=== PATIENT | female | born 1965 | race Caucasian/White ===

== ENCOUNTER 2019-03-18 05:04 | Inpatient (IN) ==
--- NOTE | 2019-03-18 06:06 | PROVIDER DOCUMENTATION ---
HPI-General Adult - General Chief Complaint: Stroke-Like Symptoms Stated Complaint: weakness/ stroke like symptoms Time Seen by Provider: 03/18/19 05:06 Source: patient, family Allergies/Adverse Reactions: Patient Allergies Allergy/AdvReac Type Severity Reaction Status Date / Time Penicillins Allergy Intermediate RASH Verified 11/07/18 16:59 Home Medications: Home Medication List Medication Instructions Recorded Confirmed Last Taken Type Hydrocodone/Acetaminophen [[place] 1 each PO PRN PRN 08/25/17 08/25/17 08/25/17 13:00 History 10-325 Tablet] 0.5 TAB Hydrocodone/Acetaminophen [[place] 1 each PO Q4-6H PRN PRN #12 tablet 08/25/17 Unknown Rx 5-325 Tablet] Ibuprofen [Motrin] 800 mg PO Q8H PRN PRN #30 tablet 08/25/17 Unknown Rx Metformin [Glucophage] 500 mg PO BID CC #180 tablet 08/25/17 Unknown Rx Cefdinir 300 mg PO BID 7 Days #13 cap 11/07/18 Unknown Rx Sulfamethoxazole/Trimethoprim 1 ea PO BID 7 Days #13 tab 11/07/18 Unknown Rx [Bactrim Ds Tablet] Oxycodone HCl/Acetaminophen 1 - 2 ea PO Q6-8H PRN PRN #15 tab 02/25/19 Unknown Rx [Percocet 5-325 mg Tablet] - History of Present Illness -Gen Adult Nature of Presenting Problems: Pt presents with stroke like symptoms, last normal 7p last night, developed left sided facial droop, left arm and leg weakness, slurred speech, brother encouraged pt to come to the hospital but pt refused at the time, pmh of several TIAs, pt denies f/c, farias, cp, sob, cough, ap, n/v/d. Pt is lying in bed in no acute distress. Location of Pain/Injury: reports: upper extremity (left), lower extremity (left) Pain Radiation: reports: no radiation Quality of Pain: reports: none Severity: reports: moderate Onset/Duration: reports: other (11 hours) Timing: reports: still present, improving Context/Activities at Onset: reports: none Modifying Factors: improves with: nothing Associated Symptoms: reports: denies symptoms Similar Symptoms Previously?: No Recently seen or treated by another doctor?: No Review of Systems - Adult - REVIEW OF SYSTEMS - ADULT Constitutional: reports: no symptoms reported Eyes: reports: no symptoms reported Ears, Nose, Mouth & Throat: reports: no symptoms reported Cardiovascular: reports: no symptoms reported Respiratory: reports: no symptoms reported Gastrointestinal: reports: no symptoms reported Genitourinary: reports: no symptoms reported Musculoskeletal: reports: no symptoms reported Integumentary: reports: no symptoms reported Neurological: reports: see HPI Psychiatric: reports: no symptoms reported Endocrine: reports: no symptoms reported Hematologic/Lymphatic: reports: no symptoms reported Allergic/Immunologic: reports: no symptoms reported All Other Systems: Reviewed and Negative Past History - Adult - PAST MEDICAL HISTORY-ADULT Review of Records: reports: Old Records Reviewed, Nursing Assessment Review, Medications Reviewed, Social history reviewed & non-contributory. Major Childhood Illnesses: reports: denies history Cardiovascular: reports: HTN, hyperlipidemia Respiratory: reports: denies history Gastrointestinal: reports: denies history Obstetrical/Gynecological: reports: denies history Genitourinary: reports: kidney disease Musculoskeletal: reports: chronic pain, neck/back injury Neurological: reports: TIA Psychiatric: reports: depression Endocrine/Immune: reports: Diabetes - PRIOR SURGERIES/PROCEDURES Surgical/Procedure History: reports: appendectomy, - PRIOR HOSPITALIZATIONS Prior Hospitalizations: reports: for similar symptoms - IMMUNIZATION STATUS Childhood Immunizations: See Nurse Assessment Flu Vaccine: See Nurse Assessment - FAMILY HISTORY Family History: reviewed, not pertinent Physical Exam-General - PHYSICAL EXAM-ADULT Initial Vital Signs Reviewed: Yes - CONSTITUTIONAL General Appearance: appears well - EYES Eyes: PERRL/EOMI - HEAD, EARS, NOSE, MOUTH & THROAT HENMT: normal ENT inspection - NECK Neck: normal inspection - RESPIRATORY Respiratory: no respiratory distress, no accessory muscle use - CARDIOVASCULAR Cardiovascular: regular rate, rhythm - GASTROINTESTINAL (ABDOMEN) Abdominal Exam: non tender, soft - LYMPHATIC Lymphatic: no adenopathy - MUSCULOSKELETAL Back Exam: normal inspection Extremity: normal inspection - SKIN Integumentary: normal color - NEUROLOGIC Neurologic: facial droop, motor weakness - PSYCHIATRIC Psych/Mental Status: normal mood/affect Progress - PLAN OF CARE/RESULTS Progress/Plan/Lab Results: Vital Signs - 8 hr 03/18/19 05:28 Temperature 98.2 F Pulse Rate 73 Respiratory Rate 17 Blood Pressure 132/102 O2 Sat by Pulse Oximetry 100 Orders Category Date Time Status Cardiac Monitoring DIRECTED Care 03/18/19 05:06 Active Finger Stick Blood Sugar (ED) DIRECTED Care 03/18/19 05:06 Active Saline Loc NOW Care 03/18/19 05:06 Active CHEST-PORTABLE [RAD] Stat Exams 03/18/19 05:[address] HEAD W/O CONTRAST [CT] Stat Exams 03/18/19 05:07 Taken CBC WITH ELECTRONIC DIFF [HEME] Stat Lab 03/18/19 05:57 Ordered COMPREHENSIVE METABOLIC PANEL [CHEM] Stat Lab 03/18/19 05:57 Ordered PROTIME WITH INR [COAG] Stat Lab 03/18/19 05:57 Ordered PTT [COAG] Stat Lab 03/18/19 05:57 Ordered TROPONIN T Stat Lab 03/18/19 05:57 Ordered URINALYSIS W/POSS RFLX CULT [URINALYSIS] Stat Lab 03/18/19 05:06 Uncollected EKG [EKG] Stat Ther 03/18/19 05:06 Ordered
[2019-03-18 06:23] LABS: BASO# 0.03 X1000 (0.0-0.2); BASO% 0.3 % (0.0-0.8); EOS# 0.09 X1000 (0.0-0.7); EOS% 0.9 % (0.0-10.0); HEMATOCRIT 43.3 % (37.0-47.0); HEMOGLOBIN 14.6 g/dL (12.0-16.0); LYMPH# 1.79 X1000 (1.2-3.4); LYMPH% 18.4 % (20.5-51.1); MCH 29.1 PG (27-31); MCHC 33.7 g/dL (33-37); MCV 86.4 FL (81-99); MONO# 0.67 X1000 (0.11-0.59); MONO% 6.9 % (1.7-9.3); MPV 12.9 FL (7.4-10.4); NEUT# 7.16 X1000 (1.4-6.5); NEUT% 73.5 % (42.2-75.2); PLT 187 X1000 (130-400); RBC 5.01 XMIL (4.2-5.4); WBC 9.74 X1000 (4.8-10.8)
--- NOTE | 2019-03-18 06:26 | Diag Imaging Result Doc PS360 ---
CT HEAD W/O CONTRAST - 03/18/2019 INDICATION: Stroke like symptoms. COMPARISON: None FINDINGS: The ventricles and sulci are normal in size and contour. No intracranial mass or hemorrhage. The skull is intact. The sinuses mastoids and middle ears are clear. IMPRESSION: Negative exam. This exam was performed using automated exposure control, adjustment of mA or kV according to patient size, and/or use of iterative reconstruction technique Electronically signed by Ernesto Key 03/18/2019 6:24 AM
[2019-03-18 07:00] LABS: INR 0.96; PROTIME 13.5 Seconds (11.0-16.0)
[2019-03-18 07:01] LABS: PTT 25.1 Seconds (22.3-41.8)
[2019-03-18 07:01] LABS: URINE SOURCE CATH
--- NOTE | 2019-03-18 07:01 | Diag Imaging Result Doc PS360 ---
EXAM: CHEST-PORTABLE 03/18/2019 HISTORY: stroke like symptoms TECHNIQUE: AP portable at 0540 COMMENT: There is mild interstitial pulmonary edema. There are granulomata bilaterally. IMPRESSION: Mild pulmonary edema. Electronically signed by Darwin Avina 03/18/2019 6:59 AM
[2019-03-18 07:04] LABS: BILIRUBIN URINE NEGATIVE (NEGATIVE); BLOOD URINE NEGATIVE (NEGATIVE); COLOR YELLOW; GLUCOSE URINE 500 mg/dL (NEGATIVE); KETONE URINE NEGATIVE (NEGATIVE); LEUKOCYTES URINE NEGATIVE (NEGATIVE); NITRITE URINE NEGATIVE (NEGATIVE); PH URINE 6.5; PROTEIN URINE NEGATIVE (NEGATIVE); TURBIDITY URINE CLEAR (CLEAR); UROBILINOGEN URINE NORMAL (NORMAL)
[2019-03-18 07:05] LABS: UR EPITHELIAL CELLS <10 /HPF (<10); URINE BACTERIA NEGATIVE /HPF; URINE RBC <10 /HPF (<10); URINE WBC <10 /HPF (<10)
[2019-03-18 07:18] LABS: AGAP 15; ALB/GLOB RATIO 1.4; ALBUMIN 3.8 g/dL (3.5-5.0); ALKALINE PHOSPHATASE 90 U/L (32-104); BUN 15 mg/dL (8-22); CALCIUM 9.7 mg/dL (8.8-10.2); CHLORIDE 104 mmol/L (98-107); COSMO 290; CREATININE 0.5 mg/dL (0.5-0.9); GLUCOSE 274 mg/dL (70-104); GOT 13 U/L (10-30); GPT 11 U/L (10-36); POTASSIUM 4.3 mmol/L (3.5-5.1); SODIUM 140 mmol/L (136-145); TCO2 21 mmol/L (25-35); TOTAL BILIRUBIN 0.54 mg/dL (0.20-1.00); TOTAL PROTEIN 6.5 g/dL (6.3-8.3)
--- NOTE | 2019-03-18 08:15 | EKG Report ---
Test Performed on : 03/18/2019 05:38:33 AM Test Reason : Stroke like symptoms Blood Pressure : / mmHG Vent. Rate : 072 BPM Atrial Rate : 072 BPM P-R Int : 146 ms QRS Dur : 082 ms QT Int : 412 ms P-R-T Axes : 033 048 054 degrees QTc Int : 451 ms Normal sinus rhythm. Normal ECG When compared with ECG of 27-DEC-2014 09:25, No significant change was found Unconfirmed Result
[2019-03-18] MEDS: ASPIRIN PO SCH (12:41)
--- NOTE | 2019-03-18 16:59 | ECHO REPORT ---
ORDER DATE: 03/18/2019 INTERPRETING PHYSICIAN: Adryan Jaramillo MD ECHOCARDIOGRAPHIC MEASUREMENTS: 1. Interventricular septum 0.8 cm. 2. Left ventricular posterior wall 0.8 cm. 3. Diastolic diameter 4.9 cm. 4. Left atrium 3.2 cm. 5. Aorta 3.2 cm. SUMMARY OF THE 2-DIMENSIONAL IMAGIN. Technically suboptimal study. Poor acoustic window. 2. The aortic valve leaflets are trileaflet. 3. Pulmonic valve not well visualized. 4. Mitral valve was normal. 5. Tricuspid valve was normal. 6. There is trace mitral regurgitation. 7. Mild tricuspid regurgitation. 8. Peak velocity across the tricuspid valve less than 2 m/sec. 9. Peak velocity across the aortic valve less than 2 m/sec. 10. By Doppler studies, there is no aortic stenosis or regurgitation. 11. Saline contrast study was negative for patent foramen ovale. 12. Optison was used to assess left ventricular systolic function. 13. Normal left ventricular cavity size. 14. Estimated ejection fraction of 65% 15. There is no pericardial effusion or obvious intracardiac mass or thrombus seen. cc: MD Bernardo Camargo MD
[2019-03-18] MEDS: GLUCOPHAGE PO SCH (19:00)
[2019-03-18] MEDS: ULTRACET 37.5MG/325MG PO PRN (19:00)
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
[2019-03-18] MEDS: LIPITOR PO SCH (22:15)
[2019-03-18] MEDS: LOVENOX SUBQ SCH (22:16)
[2019-03-18] MEDS: HUMULIN N SUBQ SCH (22:28)
[2019-03-18] MEDS: PRINIVIL PO SCH (22:30)
[2019-03-19] MEDS: ULTRACET 37.5MG/325MG PO PRN ×4 (00:53→20:11)
[2019-03-19] MEDS: HUMULIN N SUBQ SCH ×2 (06:34→17:44)
[2019-03-19 07:48] LABS: HEMOGLOBIN A1C 9.2 % (4.8-6.0)
[2019-03-19] MEDS: GLUCOPHAGE PO SCH ×2 (08:46→17:44)
[2019-03-19] MEDS: ASPIRIN PO SCH (08:46)
--- NOTE | 2019-03-19 09:43 | Diag Imaging Result Doc PS360 ---
MRI BRAIN W/O CONTRAST - 03/19/2019 INDICATION: left sided hemiparesis COMPARISON: Head CT 03/18/2019 FINDINGS: There is a large area of restricted diffusion in the paramedian right side of the ruben. There is possibly another small area in the subcortical left parietal lobe. No mass effect or intracranial hemorrhage. There are several scattered small foci of hyperintensity in the deep cerebral white matter bilaterally compatible with chronic microvascular disease. IMPRESSION: 1. Recent infarction at the paramedian right side of the ruben. 2. Small recent infarction in the subcortical left parietal lobe. 3. This report was discussed with RT Carson on 03/19/2019 at 9:40 AM and was readback. Electronically signed by Ernesto Key 03/19/2019 9:41 AM
[2019-03-19] MEDS ORDERED: PRILOSEC PO ONE (13:26)
--- NOTE | 2019-03-19 13:38 | Carotid Study ---
DATE: 03/18/2019 PROCEDURE: Carotid duplex imaging. REFERRING PHYSICIAN: Dr. Laurent INTERPRETING PHYSICIAN: Dr. Lee TECH: Kenzie INDICATIONS: CVA with left-sided body paralysis. OBSERVED DATA RIGHT LEFT Brachial Blood Pressure Carotid Pulse Bruits: Carotid/Sub DIAGRAM OF ULTRASOUND IMAGING R L RIGHT INT EXT INT EXT LEFT Satish (cm/s) Satish (cm/s) Subclavian 119/0 Subclavian 207/0 CCA Proximal 95/8 CCA Proximal 138/13 CCA Distal 104/12 CCA Distal 81/13 Bulb 59/12 Bulb 81/15 ICA Proximal 47/13 ICA Proximal 78/11 ICA Mid 67/17 ICA Mid 95/26 ICA Distal 88/29 ICA Distal 78/7 ECA 156/12 ECA 156/9 Vertebral 66/4 A Vertebral 52/16 A ICA/CCA Ratio 0.85 ICA/CCA Ratio 0.70 % Stenosis 0 to 39 % Stenosis 0 to 39 FINDINGS: On the right, there were no significant atherosclerotic changes. On the left, there are some atherosclerotic changes but no focal plaque in the left carotid bulb. This does not cause elevation of velocities and would correlate to only a mild stenosis here. PHYSICIAN INTERPRETATION: Mild atherosclerotic changes noted in the left carotid artery system. cc: MD Bernardo Herrera MD
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
--- NOTE | 2019-03-19 18:36 | CONSULTATION ---
DATE OF CONSULTATION: 03/19/2019 HISTORY OF PRESENT ILLNESS: Ms. Tucker is 54 years old and she has had a stroke. History from the patient is that she had a busy day 2 days ago and felt tired later in the day. She noticed specifically that her left arm and leg seemed weak and she had trouble using her left arm. She went to bed. When she got up in the night, she had trouble getting up to the bathroom. She noted left arm and leg were very weak. Speech was slurred. She had some trouble chewing and swallowing. There was no vision disturbance. She did not have a memory gap or a period of altered awareness. She had some headache, which may have been right-sided but hard for her to describe now. She presented to the hospital. She was found to have left hemiplegia. Workup includes brain MRI showing acute right pontine infarction and also small left parietal subcortical infarction which may be acute. Echocardiogram showed no source of embolus. Systolic blood pressures have ranged 120s to 200s. Lab shows blood sugars 200 to 300. I do not see any thing else remarkable in the chemistry profile. She has past history of diabetes mellitus, dyslipidemia, hypertension, and she is a cigarette smoker. She was not taking any of her medicines recently. She reports an episode of left limb weakness resolving over a few weeks when she was in her mid 30s. That was also associated with headache. She believes she made complete recovery except that she was ambidextrous before that event and her left arm seemed not quite as skillful afterward. She reports having an episode of left facial drooping, also associated with headache, about 10 years ago. There was no limb involvement then. That resolved completely. She has not had any other stroke, seizure, serious head injury, other neurologic event. PHYSICAL EXAMINATION: Ms. Tucker is awake, alert, attentive, appropriate. Speech is dysarthric but easily understood. Language function is intact on bedside testing. Memory is good. I did not test her cognitive function thoroughly. I did not observe chewing or swallowing. Head and neck are unremarkable. There is no meningismus. Visual david are full, tested grossly by confrontational finger counting. Extraocular movements are full. The left nasolabial fold is less prominent than the right. Facial motility is good bilaterally. Gag is intact. Tongue protrudes toward the left. Shoulder shrug is diminished on the left. She has good power in the right limbs. On the left, strength grades 1/5 at the deltoid, 2/5 at the iliopsoas, 3/5 at the gastrocnemius. Left arm is flaccid. She did rapid alternating movements well with the right hand. She did well with right [id number]. I did not test her gait. She reports diminished pinprick appreciation over the left upper lip with inconsistent margins. Otherwise, sensation is intact to pinprick testing across the face. She has "pins and needles" sensation associated with pinprick touching the left hand. Pinprick appreciation is normal on the right. She has a stocking pattern of sensory loss bilaterally and I do not find definite asymmetry on sensory exam in the legs. Proprioception is good at the great toe MTP joint bilaterally. Reflexes are absent at the ankles bilaterally. IMPRESSION: 1. Left hemiplegia. This is consistent with the right pontine infarction. Sensory findings are a little bit equivocal. There is no vision deficit. She has risk factors as reviewed. I do not have any suggestion for further workup right now. If carotid ultrasound has not been done, that can be obtained electively, but this is probably not a carotid territory infarction. 2. MRI evidence of possible additional recent small left parietal infarction. Negative echocardiogram is reassuring. I do not find a definite deficit to attribute to that lesion. 3. She has history of 2 prior probable neurologic events, the one twenty years ago associated with headache, resolved over a few weeks, and there also headache with the episode 10 years ago. The duration of deficit is more than generally would be expected with migraine. 4. She has clinical evidence of peripheral neuropathy, presumed diabetic neuropathy. I do not think this needs urgent attention. I would be careful with blood pressure management short-term. I have encouraged her to be aggressive with management of her risk factors. I do not have anything to add from neurologic standpoint right now. Thanks for asking Neurology to see Ms. Tucker. cc: MD Bernardo Nixon III, MD MTDD
[2019-03-19] MEDS: LIPITOR PO SCH (20:09)
[2019-03-19] MEDS: PRINIVIL PO SCH (20:10)
[2019-03-19] MEDS: LOVENOX SUBQ SCH (20:14)
[2019-03-20] MEDS: ULTRACET 37.5MG/325MG PO PRN ×4 (03:47→20:55)
[2019-03-20] MEDS: PRILOSEC PO SCH (06:04)
[2019-03-20] MEDS: HUMULIN N SUBQ SCH ×2 (06:04→18:17)
[2019-03-20] MEDS: GLUCOPHAGE PO SCH ×2 (08:25→17:29)
[2019-03-20] MEDS: ASPIRIN PO SCH (08:26)
[2019-03-20] MEDS: ACTOS PO SCH (20:54)
[2019-03-20] MEDS: LIPITOR PO SCH (20:55)
[2019-03-20] MEDS: LOVENOX SUBQ SCH (20:56)
[2019-03-21] MEDS: PRILOSEC PO SCH (06:14)
[2019-03-21] MEDS: HUMULIN N SUBQ SCH ×2 (06:15→18:29)
[2019-03-21] MEDS: GLUCOPHAGE PO SCH ×2 (07:43→18:29)
[2019-03-21] MEDS: ULTRACET 37.5MG/325MG PO PRN ×3 (07:43→21:22)
[2019-03-21] MEDS: ASPIRIN PO SCH (08:01)
[2019-03-21] MEDS ORDERED: MILK OF MAGNESIA PO ONE (09:31)
[2019-03-21] MEDS: LIPITOR PO SCH (21:22)
[2019-03-21] MEDS: ACTOS PO SCH (21:22)
[2019-03-21] MEDS: LOVENOX SUBQ SCH (21:24)
[2019-03-22] MEDS: ULTRACET 37.5MG/325MG PO PRN ×3 (03:29→15:46)
[2019-03-22] MEDS: HUMULIN N SUBQ SCH ×2 (06:31→17:46)
[2019-03-22] MEDS: PRILOSEC PO SCH (06:31)
[2019-03-22] MEDS: ASPIRIN PO SCH (07:59)
[2019-03-22] MEDS: GLUCOPHAGE PO SCH ×2 (07:59→17:46)
[2019-03-22] MEDS ORDERED: SENOKOT PO ONE (08:20)
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
--- NOTE | 2019-03-22 10:23 | PROGRESS NOTE ---
DATE: 03/22/2019 Ms. Tucker has noted some improvement in voluntary use of the left arm. She believes right hand incoordination with feeding is more prominent. She had some mostly posterior dull headache. Systolic blood pressures have been as high as 150s. I am not certain that correlates with her headache, but is a possibility. On exam, she is awake, alert, attentive. Speech is less dysarthric than on Friday. Facial motility is good bilaterally and left nasolabial fold is improved compared to Friday. Tongue still protrudes to the left. She has definitely improved voluntary power in the left arm. She is able to raise her left arm from the bed. She also has improved strength in the left leg proximally. Visual david are full. I cannot find a definite deficit in the right arm on bedside testing but when I watched her pantomime using a spoon, there does appear to be some dystaxia. I could not reproduce that on [id number] testing. She reports trouble with handwriting but I did not test that. I have ordered repeat noncontrast CT to look at the left hemisphere lesion. Initial CT was unremarkable but MRI documented the right pontine infarction causing left hemiplegia and also possible left hemisphere infarction. Eventually, depending on her clinical course and CT report, we might need to repeat the MRI. I encouraged her again to be aggressive with management of her risk factors and she seems motivated right now. Thanks for asking neurology to see Ms. Tucker. cc: MD Bernardo Nixon III, MD MTDD
--- NOTE | 2019-03-22 10:28 | ORTHOPAEDICS CONSULTATION ---
DATE: 03/22/2019 CHIEF COMPLAINT: From an orthopedic standpoint right knee and hip pain. HISTORY OF PRESENT ILLNESS: Ms Tucker is a 54-year-old female who unfortunately was diagnosed with a stroke and was admitted to the hospital. She has a lot of weakness on the left upper and lower extremities. She has had a previous tibial plateau fracture that I have been following her for in clinic and we were going to treat nonoperatively. PAST MEDICAL HISTORY: Obstructive sleep apnea. PAST SURGICAL HISTORY: Appendectomy and hysterectomy. FAMILY HISTORY: Positive for hypertension and diabetes. SOCIAL HISTORY: She is . She does smoke less than half pack a day. ALLERGIES: Allergies are to penicillin. MEDICATIONS: Per the medical record. REVIEW OF SYSTEMS: Positive for stroke with symptoms and right knee and hip pain. PHYSICAL EXAMINATION: General: Well-developed, well-nourished female. She is in no acute distress. Head and Neck: Normocephalic, atraumatic. Respirations: She has nonlabored breathing. Cardiovascular: Regular pulse. Abdomen: Abdomen is nondistended. Extremities: Right lower extremity exam: She is actually able to move the knee pretty well. A lot of her swelling has come down and she has some tenderness to palpation around the knee. She has good capillary refill to all the toes. IMAGING: X-rays of the right hip shows maybe just a little bit of degenerative change there but it is very mild, no fracture seen. ASSESSMENT: 1. Right sided stroke with left hemiparesis. 2. Right tibial plateau fracture treated nonoperatively. PLAN: I have ordered an x-ray of Ms. Tucker right knee so we can take a look at that tibial plateau fracture. Currently she is nonweightbearing right lower extremity. She is working on her range of motion. When we get the x-ray if everything looks good then we will probably keep her nonweightbearing for a few more weeks while this begins to heal in. cc: MD Bernardo Chakraborty MD
--- NOTE | 2019-03-22 10:41 | Diag Imaging Result Doc PS360 ---
CT HEAD W/O CONTRAST - 03/22/2019 INDICATION: stroke COMPARISON: 03/18/2019 FINDINGS: The right current median pontine cerebral infarctions quite visible now. No mass effect or intracranial hemorrhage. No new abnormalities. IMPRESSION: Evolving right paramedian pontine stroke with no evidence of complication. This exam was performed using automated exposure control, adjustment of mA or kV according to patient size, and/or use of iterative reconstruction technique Electronically signed by Ernesto Key 03/22/2019 10:38 AM
[2019-03-22] MEDS: LOVENOX SUBQ SCH (23:45)
[2019-03-22] MEDS: LIPITOR PO SCH (23:45)
[2019-03-22] MEDS: ACTOS PO SCH (23:45)
[2019-03-23] MEDS: HUMULIN N SUBQ SCH ×2 (06:48→18:45)
[2019-03-23] MEDS: PRILOSEC PO SCH (06:49)
[2019-03-23] MEDS: FIORICET PO PRN ×3 (09:10→22:00)
[2019-03-23] MEDS: ASPIRIN PO SCH (09:10)
[2019-03-23] MEDS: GLUCOPHAGE PO SCH ×2 (09:11→16:13)
--- NOTE | 2019-03-23 13:56 | PROGRESS NOTE ---
DATE: 03/23/2019 Ms. Tucker reports she used her right arm for feeding better today. She believes she is making some progress with raising left arm and kicking with left leg while sitting at the bedside. She has not had trouble with chewing or swallowing. Her repeat CT yesterday did not show evidence of new left hemisphere lesion to explain the reported difficulty using right arm. I encouraged her to be aggressive with management of her risk factors. I do not have anything new to add today from Neurology standpoint. Thanks for asking us to see Ms. Tucker. cc: MD Bernardo Nixon III, MD MTDD
[2019-03-23] MEDS: ACTOS PO SCH (21:58)
[2019-03-23] MEDS: LIPITOR PO SCH (22:01)
[2019-03-23] MEDS: LOVENOX SUBQ SCH (22:02)
[2019-03-24] MEDS: FIORICET PO PRN ×3 (05:48→16:58)
[2019-03-24] MEDS: HUMULIN N SUBQ SCH ×2 (05:51→18:57)
[2019-03-24] MEDS: ULTRACET 37.5MG/325MG PO PRN ×3 (08:00→21:16)
[2019-03-24] MEDS: GLUCOPHAGE PO SCH ×2 (09:22→17:00)
[2019-03-24] MEDS: ASPIRIN PO SCH (09:22)
--- NOTE | 2019-03-24 13:10 | PROGRESS NOTE ---
DATE: 03/24/2019 Ms. Tucker reports noticing that she has definitely improved power in the left arm, and she was able to demonstrate purposeful plantar flexion of the left foot. She is planning rehab assignment, and she believes that will begin tomorrow. I encouraged her to continue off cigarettes, and to be aggressive with management of her risk factors for cerebrovascular ischemic problems. I do not have any other suggestion right now. I will be glad to see her as an outpatient if needed. Thanks for asking Neurology to see Ms. Tucker. cc: MD Bernardo Nixon III, MD [facility]PITALRick
[2019-03-24] MEDS: PRILOSEC PO SCH (14:33)
[2019-03-24] MEDS: LIPITOR PO SCH (21:15)
[2019-03-24] MEDS: ACTOS PO SCH (21:18)
[2019-03-24] MEDS: LOVENOX SUBQ SCH (21:18)
[2019-03-25] MEDS: ULTRACET 37.5MG/325MG PO PRN ×2 (04:34→12:55)
[2019-03-25] MEDS: PRILOSEC PO SCH (06:29)
[2019-03-25] MEDS: HUMULIN N SUBQ SCH (06:29)
[2019-03-25] MEDS: FIORICET PO PRN (06:31)
[2019-03-25] MEDS ORDERED: CITRATE OF MAGNESIA PO ONE ×2 (08:34→13:00)
[2019-03-25] MEDS ORDERED: VITAMIN D PO SCH (08:45)
[2019-03-25] MEDS: GLUCOPHAGE PO SCH (09:06)
[2019-03-25] MEDS: ASPIRIN PO SCH (09:07)
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
[2019-03-25 16:02] VITALS: BP 141/55
[2019-03-25] MEDS ORDERED: CITRACAL + D PO SCH (18:00)
== END 2019-03-25 17:36 | DRG 65 ==
LOC: ED 05:04 → 3N 05:05
PROVIDERS: ADMIT Internal Medicine; ATTEND Internal Medicine
CPT/HCPCS: 70450; 70551; 71010; 71045; 73502; 73560; 80053; 80061; 81001; 82948; 83036; 83721; 83735; 84484; 85025; 85610; 85730; 93005; 93306; 93880; 97110; 97112; 97162; 97530; 99285; A9270; C8929; J1650; Q9957; XXXXX